=== PATIENT | female | born 1960 | race Caucasian/White ===

== ENCOUNTER 2020-12-01 07:26 | Emergency (ER) | payer SELFPAY ==
[~2020-12-01] VITALS: Ht 157.5 cm; Wt 90.0 kg
[~2020-12-01 07:26] MED LIST: LISI40TA13 PO; METO75TA MT
[2020-12-01] MEDS ORDERED: ADENOSINE 3 MG/ML 2ML VIAL IV ONE ×2 (07:45)
[2020-12-01 08:07] VITALS: BP 151/82
[2020-12-01 08:22] LABS: BASOPHILS % 0.6 % (0.0-2.0); EOSINOPHILS % 3.4 % (0.0-5.0); HEMATOCRIT. 42.9 % (36.0-48.0); HEMOGLOBIN. 14.3 g/dL (12.0-16.0); LYMPHOCYTES % 38.5 % (20.0-50.0); MEAN CORPUSCULAR HEMOGLOBIN 28.7 pg (28.0-32.0); MEAN CORPUSCULAR VOLUME 86.1 fL (81.0-99.0); MEAN PLATELET VOLUME 8.2 fl (7.4-10.4); MONOCYTES % 6.1 % (2.0-8.0); NEUTROPHILS % 51.4 % (40.0-76.0); PLATELET 356 x1000/uL (130-400); RED BLOOD CELL COUNT 4.98 mill/uL (4.2-5.4); RED CELL DISTRIBUTION WIDTH 14.4 % (11.6-14.6)
[2020-12-01 08:25] LABS: CHLORIDE 107 mEq/L (98-107)
== END 2020-12-01 10:02 | disposition home or self-care (01) ==
LOC: ER 07:26
DX: I47.1 Supraventricular tachycardia (principal); I10 Essential (primary) hypertension
CPT/HCPCS: 36415; 71045; 80053; 83880; 84484; 85025; 93005; 99291; J0153; J7040; Z7610